=== PATIENT | male | born 1960 | race Caucasian/White ===

== ENCOUNTER 2021-06-14 09:42 | Emergency (ER) | payer OTHER ==
[~2021-06-14] VITALS: Ht 172 cm; Wt 92.9 kg
[~2021-06-14 09:42] MED LIST: COLC0.6T53 PO; HYDR-34 PO; INDO75CA10 PO; TRAZ150T72 PO
[2021-06-14] MEDS ORDERED: NS IV 1000 ML 1,000 ML IV SCH (10:30)
[2021-06-14] MEDS ORDERED: LIDOCAINE 1% INJ 20 ML VIAL INJ ONE (10:30)
[2021-06-14] MEDS ORDERED: fentaNYL INJ 100 MCG/2 ML AMP IVP ONE (10:30)
[2021-06-14] MEDS ORDERED: LIDOCAINE 1% INJ 50 ML (XYLOCAINE) VIAL ONE (10:33)
--- NOTE | 2021-06-14 10:34 | ED Lower Extremity ---
General Chief Complaint: Lower Extremity Stated Complaint: R LEG PAIN Nursing Triage Note: PT PRESENTS TO ED VIA POV FROM HOME WITH COMPLAINTS OF CONTINUED L LEG SWELLING/PAIN X 1 WEEK. PT HAS BEEN SEEN AT DR JACOME OFFICE FOR THIS FLAIR OF GOUT BUT IT HAS CONTINUED TO GET WORSE DESPITE TAKING HIS PRESCRIPTIONS. PT WAS SEEN AT [facility]ICE TODAY AND GIVEN TORADOL SHOT THEN REFERRED TO ED. Source: patient Exam Limitations: no limitations History of Present Illness Date Seen by Provider: Jun 14, 2021 Time Seen by Provider: 10:23 Initial Comments Patient ER by private conveyance chief complaint about 1 week of gout flare started in his right ankle he went to his left elbow and now he is got in his left knee. He says the swelling and pain is worse than it ever been. He went to Dr. Arias's office yesterday and she gave him a shot of Toradol. She put him on some prednisone tablets that he has not started yet. She went back today and got another shot which he thinks was Toradol as well. He has been using hydrocodone 5 x 325 without significant relief of pain. No fever or chills but he has had sweats since this started especially all night. He has been drinking lots of fluids using just the hydrocodone because he thought he could not mix that with NSAIDs. It seems like he has been using colchicine and indomethacin at home and was on allopurinol prior to all of this. Allergies and Home Medications Allergies Coded Allergies: No Known Allergies (Verified Allergy, Unknown, 12/05/14) Patient Home Medication List Home Medication List Reviewed: Yes Colchicine (Colcrys) 0.6 Mg Tablet, 0.6 MG PO DAILY PRN for GOUT PAIN, (Reported) Entered as Reported by: GISELLA LUNA on 12/05/14856 Hydrocodone Bit/Acetaminophen (Lortab 7.5 Mg Tablet) 1 Each Tablet, 1 EACH PO Q4H PRN for PAIN, (Reported) Entered as Reported by: GISELLA LUNA on 12/05/14856 Indomethacin (Indomethacin) 75 Mg Capsule.er, 75 MG PO PRN, (Reported) Entered as Reported by: GISELLA LUNA on 12/05/14856 Trazodone HCl (Trazodone HCl) 150 Mg Tablet, 75 MG PO HS, (Reported) Entered as Reported by: GISELLA LUNA on 12/05/14856 Review of Systems Constitutional: No chills, No diaphoresis EENTM: No ear discharge, No ear pain Respiratory: No cough, No short of breath Cardiovascular: No chest pain, No palpitations Gastrointestinal: No abdominal pain, No constipation, No diarrhea Genitourinary: No discharge, No dysuria Musculoskeletal: No back pain, No joint pain All Other Systems Reviewed Negative Unless Noted: Yes Past Tvanpvd-Rbrzzw-Dnujen Hx Patient Social History Tobacco Use?: No Substance use?: Yes Substance type: Marijuana Alcohol Use?: Yes Alcohol Frequency: Once in a while Pt feels they are or have been: No Immunizations Up To Date First/Initial COVID19 Vaccinat: 06/20/20 Second COVID19 Vaccination Dexter: 07/18/20 COVID19 Vaccine Crust Sorter: moderna Past Medical History Surgery/Hospitalization HX: pmh: gout, htn, insomnia Physical Exam Vital Signs Vital Signs - First Documented 06/14/21 09:57 Temp 36.0 Pulse 105 Resp 18 B/P (MAP) 139/90 (106) Pulse Ox 97 Capillary Refill : Less Than 3 Seconds Height, Weight, BMI Height: 5'8.00" Weight: 228lbs. oz. 103.775500us; 31.00 BMI Method: General Appearance: WD/WN, no apparent distress HEENT: PERRL/EOMI, normal ENT inspection Neck: full range of motion, normal inspection Cardiovascular: normal peripheral pulses, regular rate, rhythm Respiratory: lungs clear, normal breath sounds, no respiratory distress, no accessory muscle use Gastrointestinal: normal bowel sounds, non tender, soft Hips: bilateral hip non-tender, bilateral hip normal inspection, bilateral hip normal range of motion Knees: right knee non-tender, right knee normal inspection, right knee normal range of motion; bilateral knee no evidence of injury; left knee joint effusion, left knee pain, left knee soft tissue tenderness, left knee swelling Neurologic/Psychiatric: alert, normal mood/affect, oriented x 3 Skin: normal color, warm/dry Procedures/Interventions Additional Procedures: Arthrocentesis Aspirating Progress Aspiration of the left knee using a anterior medial approach. Cleaned the skin with chlorhexidine 3 times and allowed to dry for over 2 minutes. We then cleaned the skin with alcohol and allowed to dry. Then using Z track method and a 19-gauge 1-1/2 inch needle we accessed the left knee synovial space. We aspirated cloudy yellow thin synovial fluid without any gross blood in it. We then infiltrated with 3 cc of 1% lidocaine without epinephrine. We remove the needle and covered with a sterile Band-Aid. Patient tolerated procedure well. Withdrew a total of 9.5 cc. Progress/Results/Core Measures Results/Orders Lab Results Laboratory Tests Test 06/14/21 10:49 06/14/21 11:25 Range/Units White Blood Count 9.4 4.3-11.0 10^3/uL Red Blood Count 4.62 4.30-5.52 10^6/uL Hemoglobin 13.7 13.3-17.7 g/dL Hematocrit 40 40-54 % Mean Corpuscular Volume 87 80-99 fL Mean Corpuscular Hemoglobin 30 25-34 pg Mean Corpuscular Hemoglobin Concent 34 32-36 g/dL Red Cell Distribution Width 12.7 10.0-14.5 % Platelet Count 276 130-400 10^3/uL Mean Platelet Volume 9.8 9.0-12.2 fL Immature Granulocyte % (Auto) 1 % Neutrophils (%) (Auto) 68 42-75 % Lymphocytes (%) (Auto) 17 12-44 % Monocytes (%) (Auto) 13 H 0-12 % Eosinophils (%) (Auto) 1 0-10 % Basophils (%) (Auto) 1 0-10 % Neutrophils # (Auto) 6.5 1.8-7.8 10^3/uL Lymphocytes # (Auto) 1.6 1.0-4.0 10^3/uL Monocytes # (Auto) 1.2 H 0.0-1.0 10^3/uL Eosinophils # (Auto) 0.1 0.0-0.3 10^3/uL Basophils # (Auto) 0.1 0.0-0.1 10^3/uL Immature Granulocyte # (Auto) 0.1 0.0-0.1 10^3/uL Sodium Level 135 135-145 MMOL/L Potassium Level 4.5 3.6-5.0 MMOL/L Chloride Level 102 98-107 MMOL/L Carbon Dioxide Level 20 L 21-32 MMOL/L Anion Gap 13 5-14 MMOL/L Blood Urea Nitrogen 15 7-18 MG/DL Creatinine 0.93 0.60-1.30 MG/DL Estimat Glomerular Filtration Rate 93 BUN/Creatinine Ratio 16 Glucose Level 114 H 70-105 MG/DL Uric Acid 4.8 2.6-7.2 MG/DL Calcium Level 10.0 8.5-10.1 MG/DL Corrected Calcium 10.0 8.5-10.1 MG/DL Total Bilirubin 1.1 H 0.1-1.0 MG/DL Aspartate Amino Transf (AST/SGOT) 17 5-34 U/L Alanine Aminotransferase (ALT/SGPT) 19 0-55 U/L Alkaline Phosphatase 51 40-136 U/L C-Reactive Protein High Sensitivity 26.85 H 0.00-0.50 MG/DL Total Protein 7.9 6.4-8.2 GM/DL Albumin 4.0 3.2-4.5 GM/DL Body Fluid Source SYNOVIAL Body Fluid Color YELLOW Body Fluid Appearance MKD CLDY Body Fluid WBC 98674 /uL Body Fluid RBC 2866 /uL Body Fluid Polynuclear WBCs 97 % Body Fluid Mononuclear WBCs 2 % Body Fluid Lymphocytes 1 % Body Fluid Eosinophils 0 % Body Fluid Other Cells 0 % Body Fluid Crystals URIC ACID My Orders Orders - ERAN MORRIS Ed Iv/Invasive Line Start (06/14/21 10:24) Ns Iv 1000 Ml (Sodium Chloride 0.9%) (06/14/21 10:30) Fentanyl Inj (Sublimaze Injection) (06/14/21 10:30) Lidocaine 1% Inj 20 Ml (Xylocaine 1% Inj (06/14/21 10:30) Cbc With Automated Diff (06/14/21 10:24) Comprehensive Metabolic Panel (06/14/21 10:24) Hs C Reactive Protein (06/14/21 10:24) Uric Acid (06/14/21 10:24) Body Fluid Cell Count (06/14/21 10:24) Crystals,Body Fluid (06/14/21 10:24) Body Fluid Culture (06/14/21 10:24) Knee, Left, 3 Views (06/14/21 10:28) Lidocaine 1% Inj 50 Ml (Xylocaine 1% Inj (06/14/21 10:33) Methylprednisolone Sod Succ (Solu-Medrol (06/14/21 14:00) Medications Given in ED Current Medications Medications Dose Ordered Sig/Fanny Route Start Time Stop Time Status Last Admin Dose Admin Fentanyl Citrate 50 mcg ONCE ONCE IVP 06/14/21 10:30 06/14/21 10:31 DC 06/14/21 10:40 50 MCG Vital Signs/I&O 06/14/21 09:57 Temp 36.0 Pulse 105 Resp 18 B/P (MAP) 139/90 (106) Pulse Ox 97 Blood Pressure Mean: 106 Progress Progress Note #1: Time: 10:36 Progress Note Will consider alternative diagnoses such as infection. We will start with just some labs, fentanyl and to be liter of fluids. Will get an injection of lidocaine in the knee and aspirate some fluid. Will send off for cell culture count and crystals of the synovial fluid. Progress Note #2: Time: 13:56 Progress Note Patient has significant improvement in his pain and mobility after draining the knee and putting some lidocaine in there. Diagnostic Imaging Diagonstic Imaging: Xray Plain Films/CT/US/NM/MRI: knee (Left) Comments [facility]. [place], [place] NAME: DOLLY INGRAM [facility] REC#: [id number] PT STATUS: REG ER : 1960 PHYSICIAN: ERAN MORRIS MD ADMIT DATE: 06/14/21/ER Draft Date of Exam:06/14/21 KNEE, LEFT, 3 VIEWS INDICATION: Left knee pain. AP, oblique, and lateral views of left knee are obtained. FINDINGS: No fracture or acute bony abnormality seen. There is some superior patellar spurring. There is a knee joint effusion. Medial and lateral compartments are preserved. IMPRESSION: There is a knee joint effusion with some superior patellar spurring. No acute fracture seen. Dictated on workstation # [id number] Dict: 06/14/21 1112 Trans: 06/14/21 1115 [id number] Interpreted by: PRAMOD JOSE MD Electronically signed by: Reviewed: Reviewed by Me Departure Impression Primary Impression: Gout attack Qualified Codes: M10.9 - Gout, unspecified Disposition: 01 HOME, SELF-CARE Condition: Stable Departure-Patient Inst. Decision time for Depature: 13:53 Referrals: DANIEL ARIAS DO (PCP/Family) Primary Care Physician Patient Instructions: Gout (DC) Add. Discharge Instructions: Apply heat to the knee until pain improves. Continue taking the indomethacin and colchicine as described by your primary care doctor. Hydrocodone 10 mg tablet every 6 hours as necessary for breakthrough pain that is intolerable. Drink lots of fluids. Follow-up with primary care as necessary. All discharge instructions reviewed with patient and/or family. Voiced understanding. Scripts Hydrocodone/Acetaminophen (Hydrocodone-Acetamin 10-325 mg) 1 Each Tablet 1 EACH PO Q6H PRN for PAIN-BREAKTHROUGH, #20 TAB 0 Refills Prov: ERAN MORRIS 06/14/21 Copy Copies To 1: DANIEL ARIAS TITUS J Jun 14, 2021 10:34
[2021-06-14 10:58] LABS: BASOPHILS # (AUTO) 0.1 10^3/uL (0.0-0.1); BASOPHILS % (AUTO) 1 % (0-10); EOSINOPHILS # (AUTO) 0.1 10^3/uL (0.0-0.3); EOSINOPHILS % (AUTO) 1 % (0-10); HEMATOCRIT 40 % (40-54); HEMOGLOBIN 13.7 g/dL (13.3-17.7); LYMPHOCYTES # (AUTO) 1.6 10^3/uL (1.0-4.0); LYMPHOCYTES % (AUTO) 17 % (12-44); MEAN CORPUSCULAR HEMOGLOBIN 30 pg (25-34); MEAN CORPUSCULAR HGB CONC 34 g/dL (32-36); MEAN CORPUSCULAR VOLUME 87 fL (80-99); MEAN PLATELET VOLUME 9.8 fL (9.0-12.2); MONOCYTES # (AUTO) 1.2 10^3/uL (0.0-1.0); MONOCYTES % (AUTO) 13 % (0-12); NEUTROPHILS # (AUTO) 6.5 10^3/uL (1.8-7.8); NEUTROPHILS % (AUTO) 68 % (42-75); PLATELET COUNT 276 10^3/uL (130-400); WHITE BLOOD COUNT 9.4 10^3/uL (4.3-11.0)
[2021-06-14 11:14] LABS: POTASSIUM 4.5 MMOL/L (3.6-5.0)
--- NOTE | 2021-06-14 11:15 | Diagnostic Imaging Report ---
INDICATION: Left knee pain. AP, oblique, and lateral views of left knee are obtained. FINDINGS: No fracture or acute bony abnormality seen. There is some superior patellar spurring. There is a knee joint effusion. Medial and lateral compartments are preserved. IMPRESSION: There is a knee joint effusion with some superior patellar spurring. No acute fracture seen. Dictated by: Dictated on workstation # [id number]
[2021-06-14 11:17] LABS: TOTAL PROTEIN 7.9 GM/DL (6.4-8.2)
[2021-06-14 11:19] LABS: BILIRUBIN,TOTAL 1.1 MG/DL (0.1-1.0)
[2021-06-14 11:20] LABS: CREATININE SERUM 0.93 MG/DL (0.60-1.30)
[2021-06-14 11:24] LABS: URIC ACID 4.8 MG/DL (2.6-7.2)
[2021-06-14 12:40] LABS: BODY FLUID APPEARENCE MKD CLDY; BODY FLUID COLOR YELLOW; BODY FLUID SOURCE SYNOVIAL; BODY FLUID WBC TOTAL COUNT 64000 /uL
[2021-06-14 12:41] LABS: BODY FLUID RBC COUNT 2866 /uL
[2021-06-14 12:47] LABS: BF OTHER CELLS 0 %; LYMPHOCYTES,BODY FLUID 1 %
[2021-06-14] MEDS ORDERED: HYDR-3820 PO (13:55)
[2021-06-14] MEDS ORDERED: methylPREDNISolone 125 MG (Solu-MEDROL) VIAL IVP ONE (14:00)
[2021-06-14 14:10] VITALS: BP 131/80
== END 2021-06-14 14:10 | disposition home or self-care (01) ==
LOC: EDUNIT# 09:42 → ER 09:43
DX: M10.9 Gout, unspecified (principal); Z79.891 Long term (current) use of opiate analgesic
CPT/HCPCS: 20610; 36415; 73562; 80053; 84550; 85025; 86141; 87070; 87205; 89051; 89060

== ENCOUNTER 2021-06-20 10:07 | Outpatient (CLI) | payer OTHER ==
[~2021-06-20 10:07] MED LIST changes: +HYDR-3820 PO
== END 2021-06-20 10:25 ==
LOC: SLEEP 10:07
PROVIDERS: ATTEND Family Medicine
DX: G47.33 Obstructive sleep apnea (adult) (pediatric) (principal); I10 Essential (primary) hypertension
CPT/HCPCS: G0399

== ENCOUNTER → 2021-10-16 | Outpatient (CLI) | payer OTHER ==
--- NOTE | 2021-10-16 17:04 | Diagnostic Imaging Report ---
INDICATION: Chronic back pain. Time of Exam: 4:37 PM 3 views of the lumbar spine were obtained. Curvature is normal. There is grade 1 spondylolisthesis of L4 on L5. Vertebral body heights are maintained. No acute compression fracture is seen. There is some degenerative spurring at multiple levels. Aorta is heavily calcified. Lower lumbar facet arthropathy is noted. IMPRESSION: Lumbar spondylosis with grade 1 spondylolisthesis L4 on L5. No acute bony abnormality is detected. Dictated by: Dictated on workstation # [id number]
--- NOTE | 2021-10-16 17:30 | Diagnostic Imaging Report ---
INDICATION: Back pain. TIME OF EXAM: 4:38 p.m. FINDINGS: Sacrococcygeal alignment appears normal. No fractures are seen. Sacral arcuate lines appear to be intact. SI joints are unremarkable. IMPRESSION: No acute bony abnormality is identified. Dictated by: Dictated on workstation # [id number]
== END ==
LOC: RAD 16:06
PROVIDERS: ATTEND Family Medicine
DX: M47.26 Other spondylosis with radiculopathy, lumbar region (principal); M43.16 Spondylolisthesis, lumbar region; M53.3 Sacrococcygeal disorders, not elsewhere classified
CPT/HCPCS: 72100; 72220

== ENCOUNTER 2021-11-08 14:22 | Outpatient (RCR) | payer OTHER | END 2021-11-11 | disposition home or self-care (01) | PROVIDERS: ATTEND Family Medicine | DX: M54.16 Radiculopathy, lumbar region (principal); I10 Essential (primary) hypertension ==

== ENCOUNTER → 2021-12-12 | Outpatient (RCR) | payer OTHER ==
[~2021-12-12] MED LIST changes: +COLC0.6T59 PO; +HYDR-3817 PO; +INDO50CA82 PO
== END | disposition home or self-care (01) ==
PROVIDERS: ATTEND Family Medicine
DX: M54.16 Radiculopathy, lumbar region (principal); I10 Essential (primary) hypertension

== ENCOUNTER 2021-12-21 08:45 | Emergency (ER) | payer OTHER ==
[~2021-12-21] VITALS: Ht 172.7 cm; Wt 92.9 kg
[~2021-12-21 08:45] MED LIST changes: -COLC0.6T59 PO; -HYDR-3817 PO; -INDO50CA82 PO
--- NOTE | 2021-12-21 09:28 | ED Lower Extremity ---
General Chief Complaint: Lower Extremity Stated Complaint: KNEE PAIN/SWELLING - FEVER Source: patient Exam Limitations: no limitations History of Present Illness Date Seen by Provider: Dec 21, 2021 Time Seen by Provider: 09:20 Initial Comments 61 yo with a history of Gout (diagnosed by joint aspiration several months ago with uric acid crystals present) presents with bilateral knee pain/swelling for the last 5 days or so. He cannot recall what triggered this event. He states that he follows a "gout diet". He states he attempted to get pain medications from his PCP but she recommended he come to the ER. He endorses subjective fever. Severe pain. He told me at first he has both colchicine and allopurinol at home, but then states it has been several days since he has taken his colchicine. No URI sx, no SOB or chest pain. No N/V/D or urinary complaints. He complains of swollen knees and pain with limited ROM. All other ROS reviewed and neg except as stated. Onset: other (5 days) Severity: severe Pain/Injury Location: bilateral knee Method of Injury: other (gout) Modifying Factors: Improves With Immobilization; Worse With Movement Allergies and Home Medications Allergies Coded Allergies: No Known Allergies (Verified Allergy, Unknown, 12/05/14) Patient Home Medication List Home Medication List Reviewed: Yes Colchicine (Colcrys) 0.6 Mg Tablet, 0.6 MG PO DAILY PRN for GOUT PAIN, (Reported) Entered as Reported by: GISELLA LUNA on 12/05/14 0857 Colchicine (Colchicine) 0.6 Mg Tablet, 0.6 MG PO DAILY Prescribed by: NATHANIEL MADDOX on 12/21/21 1646 Hydrocodone Bit/Acetaminophen (Lortab 7.5 Mg Tablet) 1 Each Tablet, 1 EACH PO Q4H PRN for PAIN, (Reported) Entered as Reported by: GISELLA LUNA on 12/05/14 0857 Hydrocodone/Acetaminophen (Hydrocodone-Acetamin 10-325 mg) 1 Each Tablet, 1 EACH PO Q6H PRN for PAIN-BREAKTHROUGH Prescribed by: ERAN MORRIS on 06/14/21 1355 Hydrocodone/Acetaminophen (Hydrocodone-Acetamin 7.5-325) 7.5 Mg-325 Mg Tablet, 1 EACH PO Q6H PRN for pain Prescribed by: NATHANIEL MADDOX on 12/21/21 1309 Indomethacin (Indomethacin) 75 Mg Capsule.er, 75 MG PO PRN, (Reported) Entered as Reported by: GISELLA LUNA on 12/05/14 0857 Indomethacin (Indomethacin) 50 Mg Capsule, 50 MG PO TID Prescribed by: NATHANIEL MADDOX on 12/21/21 1315 Trazodone HCl (Trazodone HCl) 150 Mg Tablet, 75 MG PO HS, (Reported) Entered as Reported by: GISELLA LUNA on 12/05/14 0857 Review of Systems Constitutional: see HPI EENTM: no symptoms reported Respiratory: no symptoms reported Cardiovascular: no symptoms reported Gastrointestinal: no symptoms reported Genitourinary: no symptoms reported Musculoskeletal: joint pain (bilateral knee pain and swelling) Skin: no symptoms reported All Other Systems Reviewed Negative Unless Noted: Yes Past Ogjnwws-Kmtyvn-Wcxooh Hx Patient Social History Tobacco Use?: No Use of E-Cig and/or Vaping dev: No Substance use?: Yes Substance type: Marijuana Substance frequency: Couple times a week Alcohol Use?: Yes Alcohol Frequency: Once in a while Pt feels they are or have been: No Immunizations Up To Date First/Initial COVID19 Vaccinat: 06/20/20 Second COVID19 Vaccination Dexter: 07/18/20 Third COVID19 Vaccination Date: yes 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 oz. 103.452566wm; 31.00 BMI Method: General Appearance: WD/WN, mild distress HEENT: PERRL/EOMI Neck: full range of motion, normal inspection Cardiovascular: regular rate, rhythm Respiratory: lungs clear, normal breath sounds, no respiratory distress, no accessory muscle use Gastrointestinal: non tender, soft Hips: bilateral hip non-tender, bilateral hip normal inspection, bilateral hip normal range of motion, bilateral hip no evidence of injury Legs: bilateral leg non-tender, bilateral leg normal inspection, bilateral leg normal range of motion, bilateral leg no evidence of injury Knees: bilateral knee pain, bilateral knee soft tissue tenderness, bilateral knee swelling, bilateral knee other (effusion and significant tenderness, especially medial joint line bilaterlly; ROM limited due to pain. NO redness or warmth) Ankles: bilateral ankle non-tender, bilateral ankle normal inspection, bilateral ankle normal range of motion, bilateral ankle no evidence of injury Feet: bilateral foot non-tender, bilateral foot normal inspection, bilateral f oot normal range of motion, bilateral foot no evidence of injury Neurologic/Tendon: normal sensation, normal motor functions Neurologic/Psychiatric: no motor/sensory deficits, alert, normal mood/affect, oriented x 3 Skin: normal color, warm/dry Progress/Results/Core Measures Results/Orders Lab Results Laboratory Tests Test 12/21/21 09:15 12/21/21 09:55 12/21/21 10:45 12/21/21 11:00 Range/Units White Blood Count 14.7 H 4.3-11.0 10^3/uL Red Blood Count 4.80 4.30-5.52 10^6/uL Hemoglobin 14.5 13.3-17.7 g/dL Hematocrit 41 40-54 % Mean Corpuscular Volume 86 80-99 fL Mean Corpuscular Hemoglobin 30 25-34 pg Mean Corpuscular Hemoglobin Concent 35 32-36 g/dL Red Cell Distribution Width 14.7 H 10.0-14.5 % Platelet Count 224 130-400 10^3/uL Mean Platelet Volume 9.0-12.2 fL Immature Granulocyte % (Auto) 1 % Neutrophils (%) (Auto) 76 H 42-75 % Lymphocytes (%) (Auto) 12 12-44 % Monocytes (%) (Auto) 11 0-12 % Eosinophils (%) (Auto) 0 0-10 % Basophils (%) (Auto) 1 0-10 % Neutrophils # (Auto) 11.2 H 1.8-7.8 10^3/uL Lymphocytes # (Auto) 1.7 1.0-4.0 10^3/uL Monocytes # (Auto) 1.7 H 0.0-1.0 10^3/uL Eosinophils # (Auto) 0.0 0.0-0.3 10^3/uL Basophils # (Auto) 0.1 0.0-0.1 10^3/uL Immature Granulocyte # (Auto) 0.1 0.0-0.1 10^3/uL Neutrophils % (Manual) 75 % Lymphocytes % (Manual) 12 % Monocytes % (Manual) 8 % Eosinophils % (Manual) 0 % Basophils % (Manual) 0 % Band Neutrophils 5 % Percent Immature Platelet Fraction 6.3 0.0-7.6 % Poikilocytosis SLIGHT Erythrocyte Sedimentation Rate 5 0-30 MM/HR Prothrombin Time 15.1 H 12.2-14.7 SEC INR Comment 1.2 0.8-1.4 Activated Partial Thromboplast Time 35 24-35 SEC Lactic Acid Level 1.18 0.50-2.00 MMOL/L Sodium Level 134 L 135-145 MMOL/L Potassium Level 4.6 3.6-5.0 MMOL/L Chloride Level 100 98-107 MMOL/L Carbon Dioxide Level 21 21-32 MMOL/L Anion Gap 13 5-14 MMOL/L Blood Urea Nitrogen 16 7-18 MG/DL Creatinine 1.11 0.60-1.30 MG/DL Estimat Glomerular Filtration Rate 75 BUN/Creatinine Ratio 14 Glucose Level 172 H 70-105 MG/DL Calcium Level 10.0 8.5-10.1 MG/DL C-Reactive Protein High Sensitivity 38.17 H 0.00-0.50 MG/DL Urine Color YELLOW Urine Clarity CLEAR Urine pH 5.5 5-9 Urine Specific [place] >=1.030 1.016-1.022 Urine Protein 2+ H NEGATIVE Urine Glucose (UA) NEGATIVE NEGATIVE Urine Ketones NEGATIVE NEGATIVE Urine Nitrite POSITIVE H NEGATIVE Urine Bilirubin 1+ H NEGATIVE Urine Urobilinogen 1.0 < = 1.0 MG/DL Urine Leukocyte Esterase NEGATIVE NEGATIVE Urine RBC (Auto) 2+ H NEGATIVE Urine RBC 2-5 H /HPF Urine WBC 0-2 /HPF Urine Squamous Epithelial Cells RARE /HPF Urine Crystals NONE /LPF Urine Bacteria TRACE /HPF Urine Casts PRESENT /LPF Urine Hyaline Casts 10-25 H /LPF Urine Granular Casts 2-5 H /LPF Urine Mucus NEGATIVE /LPF Urine Culture Indicated NO Test 12/21/21 13:14 Range/Units Body Fluid Source SYNOVIAL Body Fluid Color YELLOW Body Fluid Appearance MOD CLDY Body Fluid WBC 64.016 10^3/uL Body Fluid RBC 0.032 10^6/uL Body Fl Polynuclear WBCs (%)(Auto) 95.4 % Body Fluid Mononuclear Cells % Auto 4.6 % Body Fluid Slide Review Yes Body Fluid Crystals URIC ACID My Orders Orders - NATHANIEL MADDOX MD Ed Iv/Invasive Line Start (12/21/21 09:29) Morphine Injection (Morphine Injection (12/21/21 09:29) Ondansetron Injection (Zofran Injectio (12/21/21 09:30) Ed Iv/Invasive Line Start (12/21/21 09:35) Cbc With Automated Diff (12/21/21 09:35) Basic Metabolic Panel (12/21/21 09:35) Erythrocyte Sedimentation Rate (12/21/21 09:35) Hs C Reactive Protein (12/21/21 09:35) Blood Culture (12/21/21 09:51) Sputum Culture (12/21/21 09:51) Urinalysis (12/21/21 09:51) Urine Culture (12/21/21 09:51) Protime With Inr (12/21/21 09:51) Partial Thromboplastin Time (12/21/21 09:51) Chest 1 View, Ap/Pa Only (12/21/21 09:51) Ed Iv/Invasive Line Start (12/21/21 09:51) Ed Iv/Invasive Line Start (12/21/21 09:51) Vital Signs Adult Sepsis Patie Q15M (12/21/21 09:51) O2 (12/21/21 09:51) Remove Rings In Anticipation O (12/21/21 09:51) Lactic Acid Analyzer (12/21/21 09:51) Acetaminophen Tablet (Tylenol Tablet) (12/21/21 10:00) Colchicine Tablet (Colcrys Tablet) (12/21/21 10:00) Manual Differential (12/21/21 09:48) Colchicine Tablet (Colcrys Tablet) (12/21/21 11:45) Lidocaine 1% Inj 20 Ml (Xylocaine 1% Inj (12/21/21 11:45) Triamcinolone Acetonide Im (Kenalog-40) (12/21/21 11:45) Lidocaine 1% Inj 10 Ml (Xylocaine 1% Inj (12/21/21 12:08) Body Fluid Cell Count (12/21/21 13:03) Body Fluid Culture (12/21/21 13:03) Crystals,Body Fluid (12/21/21 13:03) Medications Given in ED Current Medications Medications Dose Ordered Sig/Fanny Route Start Time Stop Time Status Last Admin Dose Admin Acetaminophen 1,000 mg ONCE ONCE PO 12/21/21 10:00 12/21/21 10:01 DC 12/21/21 10:28 1,000 MG Colchicine 0.6 mg ONCE ONCE PO 12/21/21 11:45 12/21/21 11:46 DC 12/21/21 12:15 0.6 MG Colchicine 1.2 mg ONCE ONCE PO 12/21/21 10:00 12/21/21 10:01 DC 12/21/21 10:28 1.2 MG Lidocaine HCl 10 ml STK-MED ONCE .ROUTE 12/21/21 12:08 12/21/21 12:12 DC 12/21/21 12:17 10 ML Ondansetron HCl 4 mg ONCE ONCE IVP 12/21/21 09:30 12/21/21 09:31 DC 12/21/21 09:40 4 MG Triamcinolone Acetonide 40 mg ONCE ONCE IA 12/21/21 11:45 12/21/21 11:46 DC 12/21/21 12:18 40 MG Vital Signs/I&O 12/21/21 12/21/21 12/21/21 09:05 10:28 13:07 Temp 38.8 38.8 Pulse 123 110 Resp 18 18 B/P (MAP) 139/90 (106) 109/73 Pulse Ox 95 96 O2 Delivery Room Air Progress Progress Note #1: Time: 13:09 Progress Note Patient significantly symptomatic from bilateral knee effusions. He was requesting joint aspiration. Both knees were prepped in sterile fashion. skin anesthetized with 1% plain lidocaine. 18g needle on a 20cc syringe used to attempt to enter the joint inferior-lateral approach. 2 attempts by me, then Harshal Walker DNP did a 3rd from a superior approach to the left knee and successfully aspirated about 50ml of fluid. I prepped and draped the right knee. Was unable to, again to enter the joint - patient was very apprehensive, i was unsuccessful, so again enlisted Harshal's help; 70ml of lfuid drained. 20mg of triamcinoline and 4ml 1% lidocaine injected into each knee. Clinically the patient does not have findings concerning for "septic" joint. The knees are NOT erythematous or hot. He has some limited movement in both knees (about 15deg flexion) . No skin lesions or wounds. He does have mild leukocytosis with a normal ESR. CRP is elevated consistent with inflammatory response (as is the WBC count I believe consistent with the inflammatory response).- I encouraged him to continue his colchicine for the next several days. Pain medications provided. I advised indomethacin or ibuprofen. return precautions and follow up with PCP instructions provided. Progress Note #2: Time: 17:05 Progress Note Case and care discussed with Dr Arias. I let her know that synovial fluid cultures were pending. She will follow up on cultures this weekend. Diagnostic Imaging Diagonstic Imaging: Xray Comments [facility], [place] NAME: DOLLY INGRAM [facility] REC#: [id number] PT STATUS: REG ER : 1960 PHYSICIAN: NATHANIEL MADDOX MD ADMIT DATE: 12/21/21/ER Draft Date of Exam:12/21/21 CHEST 1 VIEW, AP/PA ONLY INDICATION: Fever FINDINGS: The lungs are clear. There is no failure pattern, effusion or pneumothorax. IMPRESSION: No acute appearing abnormality. Dictated on workstation # [id number] Dict: 12/21/21 1016 Trans: 12/21/21 10[address] [facility] [id number] Interpreted by: ADAN LOGAN Electronically signed by: Departure Impression Primary Impression: Gout attack Qualified Codes: M10.9 - Gout, unspecified Disposition: 01 HOME, SELF-CARE Condition: Stable Departure-Patient Inst. Decision time for Depature: 13:05 Referrals: DANIEL ARIAS DO (PCP/Family) Primary Care Physician Patient Instructions: Gout ED Add. Discharge Instructions: Continue your Colchicine (0.6mg) daily until 2-3 days AFTER your symptoms have resolved. Hydrocodone 7.5mg, 1 pills every 6 hours as needed for Pain. Take stool softeners while using hydrocodone. Indomethacin 50mg 3x a day for 2 days, 2x a day for 2 days and then once a day for 2 days. Drink lots of water and always take this medication with food. Follow up with your primary care doctor in 1 week. Return to the ER for any new, concerning or emergent complaints Scripts Colchicine (Colchicine) 0.6 Mg Tablet 0.6 MG PO DAILY, #20 TAB Take once a day until symptoms improve, then for 3 days after symptoms are better. Then stop. Prov: NATHANIEL MADDOX MD 12/21/21 Indomethacin (Indomethacin) 50 Mg Capsule 50 MG PO TID, #20 CAP 1 pill 3 times a day for 2 days; 2 times a day for 2 days, then once a day for 2 days; always take with food. Prov: NATHANIEL MADDOX MD 12/21/21 Hydrocodone/Acetaminophen (Hydrocodone-Acetamin 7.5-325) 7.5 Mg-325 Mg Tablet 1 EACH PO Q6H PRN for pain, #12 TAB Prov: NATHANIEL MADDOX MD 12/21/21 Copy Copies To 1: DANIEL ARIAS KATHRYN M MD Dec 21, 2021 09:28
[2021-12-21] MEDS ORDERED: morphine INJ 10 MG/ML 1ML (SYR OR VIAL) IVP STA (09:29)
[2021-12-21] MEDS ORDERED: ONDANSETRON 4 MG/2 ML (SDV) Z0FRAN IVP ONE (09:30)
[2021-12-21] MEDS ORDERED: ACETAMINOPHEN 500 MG TAB (TYLENOL) PO ONE (10:00)
[2021-12-21] MEDS ORDERED: COLCHICINE 0.6 MG (COLCRYS) TABLET PO ONE ×2 (10:00→11:45)
[2021-12-21 10:07] LABS: BASOPHILS % (AUTO) 1 % (0-10); EOSINOPHILS % (AUTO) 0 % (0-10); HEMATOCRIT 41 % (40-54); MEAN CORPUSCULAR VOLUME 86 fL (80-99)
[2021-12-21 10:09] LABS: BASOPHILS # (AUTO) 0.1 10^3/uL (0.0-0.1); HEMOGLOBIN 14.5 g/dL (13.3-17.7); LYMPHOCYTES # (AUTO) 1.7 10^3/uL (1.0-4.0); LYMPHOCYTES % (AUTO) 12 % (12-44); MEAN CORPUSCULAR HEMOGLOBIN 30 pg (25-34); MEAN CORPUSCULAR HGB CONC 35 g/dL (32-36); MONOCYTES # (AUTO) 1.7 10^3/uL (0.0-1.0); MONOCYTES % (AUTO) 11 % (0-12); NEUTROPHILS # (AUTO) 11.2 10^3/uL (1.8-7.8); NEUTROPHILS % (AUTO) 76 % (42-75); PLATELET COUNT 224 10^3/uL (130-400); WHITE BLOOD COUNT 14.7 10^3/uL (4.3-11.0)
[2021-12-21 10:13] LABS: INR 1.2 (0.8-1.4); PROTHROMBIN TIME PATIENT 15.1 SEC (12.2-14.7)
--- NOTE | 2021-12-21 10:31 | Diagnostic Imaging Report ---
INDICATION: Fever FINDINGS: The lungs are clear. There is no failure pattern, effusion or pneumothorax. IMPRESSION: No acute appearing abnormality. Dictated by: Dictated on workstation # [id number]
[2021-12-21 10:54] LABS: ERYTHROCYTE SEDIMENTATION RATE 5 MM/HR (0-30)
[2021-12-21 10:55] LABS: BAND NEUTROPHILS 5 %; BASOPHILS % (MANUAL) 0 %; EOSINOPHILS % (MANUAL) 0 %; LYMPHOCYTES % (MANUAL) 12 %; MONOCYTES % (MANUAL) 8 %; NEUTROPHILS % (MANUAL) 75 %; POIKILOCYTOSIS SLIGHT
[2021-12-21 11:07] LABS: CLARITY,URINE CLEAR; COLOR,URINE YELLOW; GLUCOSE, URINE (UA) NEGATIVE (NEGATIVE); KETONES,URINE NEGATIVE (NEGATIVE); LEUKOCYTE ESTERASE ,URINE NEGATIVE (NEGATIVE); NITRITE,URINE POSITIVE (NEGATIVE); PH,URINE 5.5 (5-9); PROTEIN,URINE 2+ (NEGATIVE)
[2021-12-21 11:14] LABS: POTASSIUM 4.6 MMOL/L (3.6-5.0)
[2021-12-21 11:20] LABS: CREATININE SERUM 1.11 MG/DL (0.60-1.30)
[2021-12-21 11:23] LABS: BACTERIA,URINE TRACE /HPF; BILIRUBIN,URINE 1+ (NEGATIVE); SQUAMOUS EPITHELIAL CELL,UR RARE /HPF; WBC,URINE 0-2 /HPF
[2021-12-21] MEDS ORDERED: LIDOCAINE 1% INJ 20 ML VIAL INJ ONE (11:45)
[2021-12-21] MEDS ORDERED: TRIAMCINOLONE ACET (KENALOG-40) 40 MG/ML 1 ML VIAL IA ONE (11:45)
[2021-12-21] MEDS ORDERED: LIDOCAINE 1% INJ 10 ML VIAL ONE (12:08)
[2021-12-21 13:07] VITALS: BP 109/73
[2021-12-21] MEDS ORDERED: HYDR-3817 PO (13:08)
[2021-12-21] MEDS ORDERED: INDO50CA82 PO (13:15)
[2021-12-21 14:17] LABS: BODY FLUID RBC COUNT 0.032 10^6/uL; BODY FLUID WBC TOTAL COUNT 64.016 10^3/uL
[2021-12-21 14:38] LABS: BODY FLUID APPEARENCE MOD CLDY; BODY FLUID COLOR YELLOW; BODY FLUID SOURCE SYNOVIAL
[2021-12-21] MEDS ORDERED: COLC0.6T59 PO (16:46)
== END 2021-12-21 13:48 | disposition home or self-care (01) ==
LOC: EDUNIT# 08:45 → ER 08:46
DX: M10.9 Gout, unspecified (principal); D72.829 Elevated white blood cell count, unspecified
CPT/HCPCS: 36415; 71045; 80048; 81000; 83605; 85007; 85025; 85027; 85610; 85652; 85730; 86141; 87040; 87070; 87088; 87205; 89051; 89060

== ENCOUNTER → 2022-05-23 | Outpatient (CLI) | payer OTHER ==
[~2022-05-23] MED LIST changes: +COLC0.6T59 PO; +HYDR-3817 PO; +INDO50CA82 PO
--- NOTE | 2022-05-23 11:06 | Diagnostic Imaging Report ---
CLINICAL INDICATION: Patient low back pain. No known injury. EXAM: MRI of the lumbar spine performed without IV contrast. Sequences include sagittal T2, sagittal T1, sagittal T2 fat-sat, and axial T2. COMPARISON: X-ray of the lumbar spine dated 10/16/2021. FINDINGS: There is no acute lumbar spine fracture. There is minimal Modic type I degenerative signal changes anteriorly involving the L2-L3 and L3-L4 levels. There are mildly hypertrophic spurs throughout the lumbar spine. There is lower lumbar spine facet arthropathy. There is a partially visualized left renal cyst. There is redundancy of the cauda equina nerve roots seen above the L2 level due to central canal stenosis. Otherwise, the visualized portions of the distal thoracic spinal cord, conus medullaris, and cauda equina nerve roots are unremarkable. The conus medullaris tip is seen at the L1-L2 intervertebral level. L1-L2: There is no significant central spinal canal or neural foramen narrowing. L2-L3: There is mild diffuse disk bulge and small annular tear anteriorly. There is moderate bilateral facet arthropathy. There is no significant central canal narrowing. There is mild bilateral neural foramen narrowing. L3-L4: There is diffuse disk bulge with superimposed moderate size central posterior disk extrusion/herniation. There is severe central canal stenosis with complete effacement of the thecal sac. There is severe bilateral facet arthropathy and ligamentum flavum buckling. There is moderate left neural foramen narrowing. There is mild right neural foramen narrowing. L4-L5: There is grade 1 anterolisthesis of L4 on L5 with no pars defects seen. There is a diffuse disk bulge. There is severe bilateral facet arthropathy/hypertrophy. There is severe central canal stenosis. There is moderate right neural foramen narrowing and mild left neural foramen narrowing. L5-S1: There is a small posterior disk bulge. There is mild bilateral facet arthropathy. There is no significant central canal narrowing. There is [id number] bilateral neural foramen narrowing with the right side more than left. IMPRESSION: 1: There is multilevel lumbar spine degenerative disease including severe degenerative disk disease involving the L3-L4 and L4-L5 levels which is described detailed above. 2: There is a partially visualized left renal cyst. Renal ultrasound would better evaluate. Dictated by: Dictated on workstation # [id number]
== END ==
LOC: RAD 08:45
PROVIDERS: ATTEND Family Medicine
DX: M47.26 Other spondylosis with radiculopathy, lumbar region (principal); M47.27 Other spondylosis with radiculopathy, lumbosacral region; M51.16 Intervertebral disc disorders with radiculopathy, lumbar region; M51.17 Intervertebral disc disorders with radiculopathy, lumbosacral region; M48.061 Spinal stenosis, lumbar region without neurogenic claudication; M48.07 Spinal stenosis, lumbosacral region; N28.1 Cyst of kidney, acquired
CPT/HCPCS: 72148